=== PATIENT | male | born 1945 | race Two or more races ===

== ENCOUNTER → 2018-01-09 | Outpatient (CLI) | payer MEDICARE, MEDICAID | END | disposition home or self-care (01) | LOC: RADPV 10:25 | PROVIDERS: ATTEND Internal Medicine Cardiovascular Disease | DX: I70.0 Atherosclerosis of aorta (principal); J18.9 Pneumonia, unspecified organism | CPT/HCPCS: 71046 ==

== ENCOUNTER → 2018-02-05 | Outpatient (CLI) | payer MEDICARE, MEDICAID | END | disposition home or self-care (01) | LOC: RADPV 11:04 | PROVIDERS: ATTEND Internal Medicine Cardiovascular Disease | DX: I70.0 Atherosclerosis of aorta (principal); R91.8 Other nonspecific abnormal finding of lung field | CPT/HCPCS: 71046 ==

== ENCOUNTER 2022-03-21 16:08 | Emergency (ER) | payer MEDICARE, MEDICAID ==
[~2022-03-21] VITALS: Ht 160 cm; Wt 75.0 kg
[2022-03-21] MEDS ORDERED: METF-1211 PO (16:36)
[2022-03-21] MEDS ORDERED: AMLO-258 PO (16:36)
[2022-03-21] MEDS ORDERED: HYDR25TA PO (16:36)
[2022-03-21] MEDS ORDERED: VERA120T21 PO (16:36)
[2022-03-21] MEDS ORDERED: IRBE150T51 PO (16:36)
[2022-03-21] MEDS ORDERED: EMPA10TA PO (16:36)
[2022-03-21] MEDS ORDERED: AMIO200T68 PO (16:36)
[2022-03-21] MEDS ORDERED: GLIP5TAB12 PO (16:36)
[2022-03-21] MEDS ORDERED: LEVO88TA4 PO (16:36)
[2022-03-21] MEDS ORDERED: SILD25 PO (16:36)
[2022-03-21 18:36] VITALS: BP 148/79
== END 2022-03-21 20:00 | disposition home or self-care (01) ==
LOC: EMS 16:08
DX: I10 Essential (primary) hypertension (principal); E11.9 Type 2 diabetes mellitus without complications; F17.210 Nicotine dependence, cigarettes, uncomplicated; Z79.899 Other long term (current) drug therapy
CPT/HCPCS: 99281; Z7502

== ENCOUNTER 2025-06-14 14:37 | Inpatient (IN) | payer MEDICARE, MEDICAID ==
[~2025-06-14] VITALS: Ht 167.6 cm; Wt 67.3 kg
[~2025-06-14 14:37] MED LIST: AMIO200T73 PO; AMLO-258 PO; EMPA10TA3 PO; GLIP5TAB16 PO; HYDR25TA PO; IRBE150T51 PO; LEVO88TA4 PO; METF-1211 PO; SILD25 PO; VERA120T21 PO
[2025-06-14 15:10] LABS: PLATELET COUNT (AUTO) 183 K/uL (150-450); RED BLOOD CELL COUNT(AUTO) 4.12 MIL/uL (4.50-5.90); RED CELL DISTRIBUTION WIDTH 21.7 % (11.5-14.5); WHITE BLOOD COUNT (AUTO) 5.0 K/uL (4.5-11.0)
[2025-06-14 15:33] LABS: RBC MORPHOLOGY COMMENT ABNORMAL RBC MORPH
[2025-06-14 15:48] LABS: CALCIUM, TOTAL 8.8 mg/dL (8.8-10.5); CREATININE 1.93 mg/dL (0.60-1.30); GLOMERULAR FILTR. RATE CALC 34.0 mL/min (>60); GLUCOSE,RANDOM 122.0 mg/dL (70-110); SODIUM SERUM 137.0 mmol/L (136-145); UREA NITROGEN, BLOOD 46.0 mg/dL (7-18)
[2025-06-14] MEDS: FUROSEMIDE 20 MG/2 ML VIAL IVP ONE (17:54)
[2025-06-14] MEDS: ACETAMINOPHEN 325 MG TABLET PO PRN (17:54)
[2025-06-14 17:55] LABS: TROPONIN I-HIGH SENSITIVITY 79 ng/L (<76)
[2025-06-14 18:09] LABS: ASPARTATE AMINOTRANSFERASE 27 U/L (15-37); TOTAL PROTEIN, SERUM 7.1 g/dL (6.4-8.2)
[2025-06-14 18:28] LABS: LACTIC ACID 0.3 mmol/L (0.4-2.0)
[2025-06-14] MEDS: ASPIRIN 325 MG TABLET PO ONE (18:40)
[2025-06-14 18:58] LABS: TROPONIN I-HIGH SENSITIVITY 82 ng/L (<76)
[2025-06-14 20:23] LABS: APPEARANCE,URINE CLEAR (CLEAR); GLUCOSE, URINE (UA) NEGATIVE (NEGATIVE); LEUKOCYTE ESTERASE ,URINE NEGATIVE (NEGATIVE); NITRATE,URINE NEGATIVE (NEGATIVE); OCCULT BLOOD,URINE NEGATIVE (NEGATIVE); SPECIFIC GRAVITIY, URINE 1.012 (1.003-1.030)
[2025-06-14 20:30] LABS: SULFOSALICYLIC ACID,URINE 2+ (Negative)
[2025-06-14 20:31] LABS: SQUAMOUS EPITHELIAL CELL,UR Rare /LPF (None Seen)
[2025-06-14] MEDS ORDERED: FUROSEMIDE 20 MG/2 ML VIAL IVP SCH (21:00)
[2025-06-14] MEDS: DOCUSATE SODIUM 100 MG CAPSULE PO SCH (21:02)
[2025-06-14 21:05] LABS: GLUCOMETER DEV NAME(LOC) ERT.7; GLUCOSE,POINT OF CARE 112 MG/DL (70-110)
[2025-06-14 22:59] VITALS: BP 185/99; PULSE 57; RESP 19; TEMP 97.8; O2SAT 95
[2025-06-14 23:12] LABS: TROPONIN I-HIGH SENSITIVITY 82 ng/L (<76)
[2025-06-14] MEDS ORDERED: NICOTINE 14 MG/24 HOUR PATCH TD PRN (23:30)
[2025-06-14] MEDS: HEPARIN SODIUM,PORCINE 5,000 UNITS/ML VIAL SQ SCH (23:49)
[2025-06-14] MEDS: NITROGLYCERIN 2% (1 GM=INCH) OINTMENT PACKET TP PRN (23:49)
[2025-06-15] VITALS (8 sets, daily range): BP systolic 142–201; BP diastolic 80–91; PULSE 44–62; RESP 16–18; TEMP 97.3–97.7; O2SAT 96–98
[2025-06-15] MEDS ORDERED: FURO-151 PO (00:26)
[2025-06-15] MEDS ORDERED: ASPI-1444 PO (00:27)
[2025-06-15] MEDS ORDERED: HYDR25TA84 PO (00:28)
[2025-06-15] MEDS ORDERED: ISOS10TA16 PO (00:29)
[2025-06-15] MEDS ORDERED: METO25TA3 PO (00:35)
[2025-06-15] MEDS ORDERED: LEVO125T95 PO (00:36)
[2025-06-15] MEDS ORDERED: LEVO88TA7 PO (00:42)
[2025-06-15] MEDS ORDERED: ATOR20TA PO (00:42)
[2025-06-15 02:47] LABS: TROPONIN I-HIGH SENSITIVITY 73 ng/L (<76)
[2025-06-15 06:22] LABS: PLATELET COUNT (AUTO) 181 K/uL (150-450); RED BLOOD CELL COUNT(AUTO) 4.13 MIL/uL (4.50-5.90); RED CELL DISTRIBUTION WIDTH 22.1 % (11.5-14.5); WHITE BLOOD COUNT (AUTO) 4.0 K/uL (4.5-11.0)
[2025-06-15 06:30] LABS: RBC MORPHOLOGY COMMENT ABNORMAL RBC MORPH
[2025-06-15 06:35] LABS: CALCIUM, TOTAL 8.3 mg/dL (8.8-10.5); CREATININE 2.18 mg/dL (0.60-1.30); GLOMERULAR FILTR. RATE CALC 29.0 mL/min (>60); GLUCOSE,RANDOM 169.0 mg/dL (70-110); SODIUM SERUM 136.0 mmol/L (136-145); UREA NITROGEN, BLOOD 46.0 mg/dL (7-18)
[2025-06-15] MEDS: ASPIRIN 81 MG DR TABLET PO SCH (08:51)
[2025-06-15] MEDS: ISOSORBIDE DINITRATE 20 MG TABLET PO SCH (08:51)
[2025-06-15] MEDS: ATORVASTATIN CALCIUM 40 MG TABLET PO SCH (08:51)
[2025-06-15 15:46] LABS: PH,URINE DRUG SCREEN 6.0 (5.0-8.0)
[2025-06-15 15:51] LABS: ALCOHOL, URINE DRUG SCREEN NEGATIVE (NEGATIVE); AMPHET/METH SCREEN,URINE NEGATIVE (NEGATIVE); BARBITURATE SCREEN, URINE NEGATIVE (NEGATIVE); CANNABINOID SCREEN,URINE NEGATIVE (NEGATIVE); COCAINE SCREEN,URINE NEGATIVE (NEGATIVE); METHADONE SCREEN, URINE NEGATIVE (NEGATIVE)
[2025-06-16] VITALS (7 sets, daily range): BP systolic 149–190; BP diastolic 64–91; PULSE 55–73; RESP 19–20; TEMP 97.5–98.6; O2SAT 96–99
[2025-06-16 07:06] LABS: CALCIUM, TOTAL 8.8 mg/dL (8.8-10.5); CREATININE 2.11 mg/dL (0.60-1.30); GLOMERULAR FILTR. RATE CALC 31.0 mL/min (>60); GLUCOSE,RANDOM 105.0 mg/dL (70-110); SODIUM SERUM 135.0 mmol/L (136-145); UREA NITROGEN, BLOOD 48.0 mg/dL (7-18)
[2025-06-16] MEDS ORDERED: SODIUM CHLORIDE 0.9% 500 ML IV ONE (12:38)
[2025-06-16] MEDS: CefTRIAXone 1 GM/DEXTROSE 50 ML IV SCH (12:43)
[2025-06-16] MEDS: DiphenhydrAMINE/ZINC ACET 30 GM CREAM TP PRN (15:12)
[2025-06-16] MEDS: ISOSORBIDE DINITRATE 20 MG TABLET PO SCH (15:13)
[2025-06-17 00:37] VITALS: BP 177/81; PULSE 66; RESP 18; TEMP 98.1; O2SAT 97
[2025-06-17 04:14] VITALS: BP 166/65; PULSE 72; RESP 17; TEMP 98.2; O2SAT 96
[2025-06-17 06:54] LABS: CALCIUM, TOTAL 8.8 mg/dL (8.8-10.5); CREATININE 2.17 mg/dL (0.60-1.30); GLOMERULAR FILTR. RATE CALC 30.0 mL/min (>60); GLUCOSE,RANDOM 129.0 mg/dL (70-110); SODIUM SERUM 134.0 mmol/L (136-145); UREA NITROGEN, BLOOD 49.0 mg/dL (7-18)
[2025-06-17 06:58] LABS: PLATELET COUNT (AUTO) 178 K/uL (150-450); RED BLOOD CELL COUNT(AUTO) 3.63 MIL/uL (4.50-5.90); RED CELL DISTRIBUTION WIDTH 22.0 % (11.5-14.5); WHITE BLOOD COUNT (AUTO) 3.9 K/uL (4.5-11.0)
[2025-06-17 07:11] VITALS: BP 172/77; PULSE 66; RESP 18; TEMP 98.2; O2SAT 98
[2025-06-17] MEDS: CLOPIDOGREL BISULFATE 75 MG TABLET PO SCH (08:27)
[2025-06-17 11:45] VITALS: BP 129/67; PULSE 50; RESP 19; TEMP 97.5; O2SAT 98
[2025-06-17 16:04] VITALS: BP 176/81; PULSE 59; RESP 19; TEMP 98; O2SAT 96
[2025-06-17] MEDS: PIPERACILLIN/TAZO 3.375 GM/D5W 50 ML IV ONE (18:18)
[2025-06-17] MEDS: ASPIRIN/DIPYRIDAMOLE ER 25/200 MG ER CAPSULE PO ONE (18:22)
[2025-06-17 20:06] VITALS: BP 144/54; PULSE 55; RESP 18; TEMP 97.6; O2SAT 97
[2025-06-17] MEDS: ONDANSETRON HCL 4 MG/2 ML VIAL IVP PRN (21:48)
[2025-06-18] VITALS (7 sets, daily range): BP systolic 117–158; BP diastolic 67–86; PULSE 54–84; RESP 17–18; TEMP 97.3–98.4; O2SAT 97–100
[2025-06-18] MEDS: PIPERACILLIN SODIUM/TAZOBACTAM 2.25 GM in DEXTROSE 5%-WATER 50 ML IV SCH (00:52)
[2025-06-18 06:45] LABS: PLATELET COUNT (AUTO) 169 K/uL (150-450); RED BLOOD CELL COUNT(AUTO) 3.49 MIL/uL (4.50-5.90); RED CELL DISTRIBUTION WIDTH 21.9 % (11.5-14.5); WHITE BLOOD COUNT (AUTO) 4.3 K/uL (4.5-11.0)
[2025-06-18 07:43] LABS: CALCIUM, TOTAL 8.5 mg/dL (8.8-10.5); CREATININE 2.19 mg/dL (0.60-1.30); GLOMERULAR FILTR. RATE CALC 29.0 mL/min (>60); GLUCOSE,RANDOM 150.0 mg/dL (70-110); SODIUM SERUM 137.0 mmol/L (136-145); UREA NITROGEN, BLOOD 45.0 mg/dL (7-18)
[2025-06-18 09:14] LABS: RBC MORPHOLOGY COMMENT ABNORMAL RBC MORPH
[2025-06-18] MEDS ORDERED: HYDROCODONE/ACETAMINOPHEN 5-325 MG TABLET PO PRN (13:15)
[2025-06-18] MEDS ORDERED: MORPHINE SULFATE 4 MG/ML SYRINGE IVP PRN (13:15)
[2025-06-18] MEDS ORDERED: ALBUTEROL SULFATE 2.5 MG/0.5 ML NEB SOLUTION NEB PRN (13:15)
[2025-06-18] MEDS ORDERED: IPRATROPIUM BROMIDE 0.5 MG/2.5 ML NEB SOLUTION NEB PRN (13:15)
[2025-06-18] MEDS ORDERED: ZOLPIDEM TARTRATE 5 MG TABLET PO PRN (13:15)
[2025-06-18] MEDS ORDERED: BISACODYL 10 MG RECTAL RECTAL SUPPOSITORY PR PRN (13:15)
[2025-06-18] MEDS ORDERED: MAGNESIUM HYDROXIDE SUSPENSION 30 ML UDCUP PO PRN (13:15)
[2025-06-18] MEDS ORDERED: ONDANSETRON HCL 4 MG/2 ML VIAL IVP PRN (13:15)
[2025-06-18] MEDS: DOCUSATE SODIUM 100 MG CAPSULE PO SCH (20:45)
[2025-06-19 04:21] VITALS: BP 158/81; PULSE 59; RESP 18; TEMP 97.5; O2SAT 98
[2025-06-19 06:53] LABS: PLATELET COUNT (AUTO) 193 K/uL (150-450); RED BLOOD CELL COUNT(AUTO) 3.75 MIL/uL (4.50-5.90); RED CELL DISTRIBUTION WIDTH 21.9 % (11.5-14.5); WHITE BLOOD COUNT (AUTO) 4.2 K/uL (4.5-11.0)
[2025-06-19 08:17] VITALS: BP 167/70; PULSE 55; RESP 18; TEMP 98.4; O2SAT 98
[2025-06-19] MEDS: PANTOPRAZOLE SODIUM 40 MG DR TABLET PO SCH (08:20)
[2025-06-19 09:12] LABS: RBC MORPHOLOGY COMMENT ABNORMAL RBC MORPH
[2025-06-19 11:02] VITALS: BP 143/52; PULSE 54; RESP 16; TEMP 98.2; O2SAT 99
[2025-06-19] MEDS ORDERED: AMOX-457 PO (11:55)
[2025-06-19] MEDS ORDERED: ATOR40TA71 PO (11:55)
[2025-06-19] MEDS ORDERED: CLOP75TA83 PO (11:55)
[2025-06-19] MEDS ORDERED: AMLO-257 PO (11:55)
[2025-06-19] MEDS ORDERED: ISOS20 PO (11:55)
[2025-06-19] MEDS ORDERED: HYDR50TA37 PO (11:55)
[2025-06-19 12:43] LABS: CALCIUM, TOTAL 8.6 mg/dL (8.8-10.5); CREATININE 2.65 mg/dL (0.60-1.30); GLOMERULAR FILTR. RATE CALC 23.0 mL/min (>60); GLUCOSE,RANDOM 176.0 mg/dL (70-110); SODIUM SERUM 134.0 mmol/L (136-145); UREA NITROGEN, BLOOD 44.0 mg/dL (7-18)
[2025-06-19 15:00] VITALS: BP 150/84; RESP 18; O2SAT 100
== END 2025-06-19 16:50 | disposition home or self-care (01) | DRG 291 ==
LOC: EMS 14:37 → CANBEDREQ 17:07 → EDH 17:33 → 5S 22:32
PROVIDERS: ADMIT Internal Medicine; ATTEND Internal Medicine
DX: I11.0 Hypertensive heart disease with heart failure (principal); I50.23 Acute on chronic systolic (congestive) heart failure; N17.9 Acute kidney failure, unspecified; L03.116 Cellulitis of left lower limb; L03.115 Cellulitis of right lower limb; E11.51 Type 2 diabetes mellitus with diabetic peripheral angiopathy without gangrene; N18.9 Chronic kidney disease, unspecified; R79.89 Other specified abnormal findings of blood chemistry; I13.0 Hypertensive heart and chronic kidney disease with heart failure and stage 1 through stage 4 chronic kidney disease, or unspecified chronic kidney disease; E03.9 Hypothyroidism, unspecified; E11.22 Type 2 diabetes mellitus with diabetic chronic kidney disease; R00.1 Bradycardia, unspecified; E78.00 Pure hypercholesterolemia, unspecified; F17.210 Nicotine dependence, cigarettes, uncomplicated; S80.811A Abrasion, right lower leg, initial encounter; S80.862A Insect bite (nonvenomous), left lower leg, initial encounter; S80.861A Insect bite (nonvenomous), right lower leg, initial encounter; X58.XXXA Exposure to other specified factors, initial encounter; Y93.89 Activity, other specified; Y92.89 Other specified places as the place of occurrence of the external cause; Y99.8 Other external cause status; Z79.899 Other long term (current) drug therapy; Z79.82 Long term (current) use of aspirin
CPT/HCPCS: 71045; 73721; 76770; 80048; 80076; 80307; 81001; 81002; 82962; 83605; 83690; 83735; 83880; 84443; 84484; 85025; 93005; 93306; 93925; 93970; 96374; 97110; 97116; 97161; 97166; 97535; 99285; J0360; J0696; J1171; J1644; J1938; J2405; J2543; J7040; J7060; 36415-L1; 36415-TC

== ENCOUNTER 2025-07-10 16:13 | Inpatient (IN) | payer MEDICARE, MEDICAID ==
[~2025-07-10] VITALS: Ht 165.1 cm; Wt 65.8 kg
[~2025-07-10 16:13] MED LIST changes: -AMIO200T73 PO; +AMLO-257 PO; -AMLO-258 PO; +AMOX-457 PO; +ASPI-1444 PO; +ATOR40TA71 PO; +CLOP75TA83 PO; -GLIP5TAB16 PO; -HYDR25TA PO; +HYDR50TA37 PO; -IRBE150T51 PO; +ISOS20 PO; -LEVO88TA4 PO; +LEVO88TA7 PO; -METF-1211 PO; +METO25TA3 PO; -SILD25 PO; -VERA120T21 PO
[2025-07-10] MEDS ORDERED: GABA-1216 PO (16:35)
[2025-07-10 17:09] LABS: CALCIUM, TOTAL 8.1 mg/dL (8.8-10.5); CREATININE 2.57 mg/dL (0.60-1.30); GLOMERULAR FILTR. RATE CALC 24 mL/min (>60); GLUCOSE,RANDOM 118 mg/dL (70-110); SODIUM SERUM 136 mmol/L (136-145); UREA NITROGEN, BLOOD 52 mg/dL (7-18)
[2025-07-10 17:12] LABS: PLATELET COUNT (AUTO) 203 K/uL (150-450); RED BLOOD CELL COUNT(AUTO) 3.11 MIL/uL (4.50-5.90); RED CELL DISTRIBUTION WIDTH 20.3 % (11.5-14.5); WHITE BLOOD COUNT (AUTO) 7.4 K/uL (4.5-11.0)
[2025-07-10] MEDS: ASPIRIN 81 MG CHEWABLE TABLET PO ONE (17:16)
[2025-07-10] MEDS: FUROSEMIDE 40 MG/4 ML VIAL IVP ONE (17:16)
[2025-07-10 17:17] LABS: TROPONIN I-HIGH SENSITIVITY 30 ng/L (<76)
[2025-07-10 17:48] LABS: RBC MORPHOLOGY COMMENT ABNORMAL R
[2025-07-10 17:52] LABS: BAND NEUTROPHILS % (MANUAL) 0 % (0-5); EOSINOPHILS % (MANUAL) 9 % (1-6); LYMPHOCYTES % (MANUAL) 3 % (22-44); MONOCYTES % (MANUAL) 4 % (2-9); SEGMENTED NEUTROPHILS % 84 % (40-70)
[2025-07-10] MEDS ORDERED: ACETAMINOPHEN 325 MG TABLET PO PRN (18:15)
[2025-07-10] MEDS ORDERED: ONDANSETRON HCL 4 MG/2 ML VIAL IVP PRN (18:15)
[2025-07-10 18:47] LABS: APPEARANCE,URINE CLEAR (CLEAR); GLUCOSE, URINE (UA) NEGATIVE (NEGATIVE); LEUKOCYTE ESTERASE ,URINE SMALL (NEGATIVE); NITRATE,URINE NEGATIVE (NEGATIVE); OCCULT BLOOD,URINE NEGATIVE (NEGATIVE); SPECIFIC GRAVITIY, URINE 1.013 (1.003-1.030)
[2025-07-10 18:49] LABS: PH,URINE DRUG SCREEN 5.5 (5.0-8.0)
[2025-07-10 18:52] LABS: ALCOHOL, URINE DRUG SCREEN NEGATIVE (NEGATIVE); AMPHET/METH SCREEN,URINE NEGATIVE (NEGATIVE); BARBITURATE SCREEN, URINE NEGATIVE (NEGATIVE); CANNABINOID SCREEN,URINE NEGATIVE (NEGATIVE); COCAINE SCREEN,URINE NEGATIVE (NEGATIVE); METHADONE SCREEN, URINE NEGATIVE (NEGATIVE)
[2025-07-10] MEDS: CefTRIAXone 1 GM/DEXTROSE 50 ML IV SCH (18:53)
[2025-07-10] MEDS: DOXYCYCLINE HYCLATE 100 MG in DEXTROSE 5%-WATER 100 ML IV SCH (19:34)
[2025-07-10] MEDS: FUROSEMIDE 20 MG/2 ML VIAL IVP SCH (19:40)
[2025-07-10] MEDS: DOCUSATE SODIUM 100 MG CAPSULE PO SCH (19:40)
[2025-07-10 19:41] LABS: SQUAMOUS EPITHELIAL CELL,UR Rare /LPF (None Seen)
[2025-07-10] MEDS: GABAPENTIN 100 MG CAPSULE PO SCH (19:41)
[2025-07-10] MEDS ORDERED: PIPERACILLIN/TAZO 3.375 GM/D5W 50 ML IV SCH (22:00)
[2025-07-10 22:03] VITALS: BP 159/65; PULSE 54; RESP 20; TEMP 97.5; O2SAT 99
[2025-07-10 22:35] VITALS: PULSE 52; RESP 20; O2SAT 99
[2025-07-10] MEDS: ALBUTEROL SULFATE 2.5 MG/0.5 ML NEB SOLUTION NEB PRN (22:35)
[2025-07-10] MEDS: IPRATROPIUM BROMIDE 0.5 MG/2.5 ML NEB SOLUTION NEB PRN (22:35)
[2025-07-10 22:50] VITALS: PULSE 53; RESP 20; O2SAT 99
[2025-07-11] VITALS: BP 152/56; PULSE 52; RESP 22; TEMP 97.7; O2SAT 97
[2025-07-11] MEDS ORDERED: SODIUM CHLORIDE 0.9% 500 ML IV ONE
[2025-07-11] MEDS: HEPARIN SODIUM,PORCINE 5,000 UNITS/ML VIAL SQ SCH (00:05)
[2025-07-11] MEDS: PIPERACILLIN SODIUM/TAZOBACTAM 2.25 GM in DEXTROSE 5%-WATER 50 ML IV SCH ×2 (00:05→21:10)
[2025-07-11 05:32] VITALS: BP 142/77; PULSE 56; RESP 26; TEMP 98.1; O2SAT 96
[2025-07-11] MEDS: LEVOTHYROXINE SODIUM 88 MCG TABLET PO SCH (05:50)
[2025-07-11 06:04] LABS: PLATELET COUNT (AUTO) 183 K/uL (150-450); RED BLOOD CELL COUNT(AUTO) 3.04 MIL/uL (4.50-5.90); RED CELL DISTRIBUTION WIDTH 20.1 % (11.5-14.5); WHITE BLOOD COUNT (AUTO) 6.9 K/uL (4.5-11.0)
[2025-07-11 06:28] LABS: CALCIUM, TOTAL 8.3 mg/dL (8.8-10.5); CREATININE 2.55 mg/dL (0.60-1.30); GLOMERULAR FILTR. RATE CALC 25.0 mL/min (>60); GLUCOSE,RANDOM 187.0 mg/dL (70-110); SODIUM SERUM 137.0 mmol/L (136-145); UREA NITROGEN, BLOOD 52.0 mg/dL (7-18)
[2025-07-11 07:00] LABS: RBC MORPHOLOGY COMMENT ABNORMAL RBC MORPH
[2025-07-11] MEDS: EMPAGLIFLOZIN 10 MG TABLET PO SCH (08:49)
[2025-07-11] MEDS: ATORVASTATIN CALCIUM 40 MG TABLET PO SCH (08:50)
[2025-07-11] MEDS: ASPIRIN 81 MG DR TABLET PO SCH (08:50)
[2025-07-11] MEDS: CLOPIDOGREL BISULFATE 75 MG TABLET PO SCH (08:50)
[2025-07-11] MEDS: METOPROLOL SUCCINATE 25 MG ER TABLET PO SCH (08:50)
[2025-07-11 08:53] VITALS: BP_SYST 135; BP_SYST 149; BP_DIAS 59; BP_DIAS 93; PULSE 53; RESP 18; RESP 20; TEMP 98.1; O2SAT 93; O2SAT 96
[2025-07-11] MEDS: FUROSEMIDE 20 MG/2 ML VIAL IVP SCH (11:56)
[2025-07-11] MEDS ORDERED: DEXTROSE 50%-WATER 25 GM/50 ML SYRINGE IVP PRN (13:00)
[2025-07-11 13:49] VITALS: BP 145/81; PULSE 50; RESP 19; TEMP 97.5; O2SAT 99
[2025-07-11 16:51] VITALS: BP 139/72; PULSE 47; RESP 18; TEMP 97.3; O2SAT 96
[2025-07-11 20:18] VITALS: BP 154/77; PULSE 45; RESP 18; TEMP 97.3; O2SAT 100
[2025-07-11] MEDS ORDERED: ATROPINE SULFATE 0.1 MG/ML 10 ML SYRINGE IVP PRN (20:30)
[2025-07-11] MEDS: INSULIN LISPRO 100 UNITS/ML SQ PRN (21:16)
[2025-07-11 21:55] LABS: GLUCOMETER DEV NAME(LOC) 5N.2C; GLUCOSE,POINT OF CARE 347 MG/DL (70-110)
[2025-07-12] VITALS (9 sets, daily range): BP systolic 120–155; BP diastolic 69–79; PULSE 44–87; RESP 18–20; TEMP 97–97.7; O2SAT 95–100
[2025-07-12 06:49] LABS: PLATELET COUNT (AUTO) 170 K/uL (150-450); RED BLOOD CELL COUNT(AUTO) 2.94 MIL/uL (4.50-5.90); RED CELL DISTRIBUTION WIDTH 20.6 % (11.5-14.5); WHITE BLOOD COUNT (AUTO) 7.7 K/uL (4.5-11.0)
[2025-07-12 07:25] LABS: CALCIUM, TOTAL 8.1 mg/dL (8.8-10.5); CREATININE 2.98 mg/dL (0.60-1.30); GLOMERULAR FILTR. RATE CALC 20.0 mL/min (>60); GLUCOSE,RANDOM 195.0 mg/dL (70-110); SODIUM SERUM 135.0 mmol/L (136-145); UREA NITROGEN, BLOOD 66.0 mg/dL (7-18)
[2025-07-12 08:32] LABS: PLATELET COUNT (AUTO) 190 K/uL (150-450); RED BLOOD CELL COUNT(AUTO) 2.98 MIL/uL (4.50-5.90); RED CELL DISTRIBUTION WIDTH 20.5 % (11.5-14.5); WHITE BLOOD COUNT (AUTO) 8.3 K/uL (4.5-11.0)
[2025-07-12 08:48] LABS: RBC MORPHOLOGY COMMENT ABNORMAL RBC MORPH
[2025-07-12] MEDS: ALBUTEROL SULFATE 2.5 MG/0.5 ML NEB SOLUTION NEB ONE (09:45)
[2025-07-12 09:49] LABS: RBC MORPHOLOGY COMMENT ABNORMAL RBC MORPH
[2025-07-12] MEDS: DEXTROSE 50%-WATER 25 GM/50 ML SYRINGE IVP ONE (10:18)
[2025-07-12] MEDS: CALCIUM GLUCONATE 100 MG/ML 10 ML IVP ONE (10:19)
[2025-07-12] MEDS: INSULIN REGULAR, HUMAN 100 UNITS/ML IVP ONE (10:22)
[2025-07-12 12:16] LABS: GLUCOMETER DEV NAME(LOC) 5N.2C; GLUCOSE,POINT OF CARE 196 MG/DL (70-110)
[2025-07-12 18:56] LABS: GLUCOMETER DEV NAME(LOC) 5S.1E; GLUCOSE,POINT OF CARE 156 MG/DL (70-110)
[2025-07-13] VITALS (14 sets, daily range): BP systolic 118–176; BP diastolic 57–86; PULSE 47–63; RESP 18–20; TEMP 97.2–98.1; O2SAT 90–96
[2025-07-13 03:51] LABS: GLUCOMETER DEV NAME(LOC) 5S.1E; GLUCOSE,POINT OF CARE 303 MG/DL (70-110)
[2025-07-13 05:58] LABS: PLATELET COUNT (AUTO) 187 K/uL (150-450); RED BLOOD CELL COUNT(AUTO) 2.88 MIL/uL (4.50-5.90); RED CELL DISTRIBUTION WIDTH 20.7 % (11.5-14.5); WHITE BLOOD COUNT (AUTO) 9.1 K/uL (4.5-11.0)
[2025-07-13 06:10] LABS: CALCIUM, TOTAL 8.1 mg/dL (8.8-10.5); CREATININE 3.31 mg/dL (0.60-1.30); GLOMERULAR FILTR. RATE CALC 18.0 mL/min (>60); GLUCOSE,RANDOM 299.0 mg/dL (70-110); SODIUM SERUM 136.0 mmol/L (136-145); UREA NITROGEN, BLOOD 74.0 mg/dL (7-18)
[2025-07-13 06:48] LABS: RBC MORPHOLOGY COMMENT ABNORMAL RBC MORPH
[2025-07-13 08:31] LABS: GLUCOMETER DEV NAME(LOC) 5N.2C; GLUCOSE,POINT OF CARE 276 MG/DL (70-110)
[2025-07-13 09:24] LABS: PLATELET COUNT (AUTO) 175 K/uL (150-450); RED BLOOD CELL COUNT(AUTO) 2.83 MIL/uL (4.50-5.90); RED CELL DISTRIBUTION WIDTH 20.7 % (11.5-14.5); WHITE BLOOD COUNT (AUTO) 8.3 K/uL (4.5-11.0)
[2025-07-13 10:21] LABS: RBC MORPHOLOGY COMMENT ABNORMAL RBC MORPH
[2025-07-13 12:00] LABS: GLUCOMETER DEV NAME(LOC) 5N.2C; GLUCOSE,POINT OF CARE 379 MG/DL (70-110)
[2025-07-13] MEDS ORDERED: SODIUM CHLORIDE 0.9% 1,000 ML ONE (14:25)
[2025-07-13] MEDS: PANTOPRAZOLE SODIUM 40 MG/VIAL IVP SCH (17:20)
[2025-07-13] MEDS: INSULIN GLARGINE,HUM.REC.ANLOG 100 UNITS/ML SQ ONE (17:27)
[2025-07-13 20:18] LABS: PLATELET COUNT (AUTO) 196 K/uL (150-450); RED BLOOD CELL COUNT(AUTO) 3.56 MIL/uL (4.50-5.90); RED CELL DISTRIBUTION WIDTH 21.1 % (11.5-14.5); WHITE BLOOD COUNT (AUTO) 7.6 K/uL (4.5-11.0)
[2025-07-13 20:38] LABS: RBC MORPHOLOGY COMMENT ABNORMAL RBC MORPH
[2025-07-13 21:25] LABS: GLUCOMETER DEV NAME(LOC) 5N.2C; GLUCOSE,POINT OF CARE 220 MG/DL (70-110)
[2025-07-13] MEDS: COLLAGENASE 250 UNITS/GM 30 GM OINTMENT TP SCH (21:48)
[2025-07-14] VITALS (7 sets, daily range): BP systolic 153–163; BP diastolic 71–82; PULSE 48–57; RESP 18–19; TEMP 97.3–98; O2SAT 94–99
[2025-07-14] MEDS: ISOSORBIDE MONONITRATE 30 MG ER TABLET PO SCH (08:11)
[2025-07-14] MEDS: INSULIN GLARGINE,HUM.REC.ANLOG 100 UNITS/ML SQ SCH (08:12)
[2025-07-14 11:15] LABS: GLUCOMETER DEV NAME(LOC) 5S.1E; GLUCOSE,POINT OF CARE 129 MG/DL (70-110)
[2025-07-14 11:15] LABS: GLUCOMETER DEV NAME(LOC) 5S.1E; GLUCOSE,POINT OF CARE 362 MG/DL (70-110)
[2025-07-14 11:51] LABS: GLUCOMETER DEV NAME(LOC) 5N.2C; GLUCOSE,POINT OF CARE 88 MG/DL (70-110)
[2025-07-14 16:09] LABS: CALCIUM, TOTAL 8.1 mg/dL (8.8-10.5); CREATININE 3.32 mg/dL (0.60-1.30); GLOMERULAR FILTR. RATE CALC 18.0 mL/min (>60); GLUCOSE,RANDOM 327.0 mg/dL (70-110); SODIUM SERUM 135.0 mmol/L (136-145); UREA NITROGEN, BLOOD 76.0 mg/dL (7-18)
[2025-07-14 17:00] LABS: GLUCOMETER DEV NAME(LOC) 5N.2C; GLUCOSE,POINT OF CARE 80 MG/DL (70-110)
[2025-07-14] MEDS: ALBUTEROL SULFATE 2.5 MG/0.5 ML NEB SOLUTION NEB SCH (19:17)
[2025-07-14] MEDS: IPRATROPIUM BROMIDE 0.5 MG/2.5 ML NEB SOLUTION NEB SCH (19:17)
[2025-07-14] MEDS: INSULIN LISPRO 100 UNITS/ML SQ ONE ×2 (21:20→21:26)
[2025-07-14] MEDS: DEXTROSE 50%-WATER 25 GM/50 ML SYRINGE IVP ONE (21:28)
[2025-07-14] MEDS: INSULIN REGULAR, HUMAN 100 UNITS/ML IVP ONE (21:30)
[2025-07-14] MEDS: CALCIUM GLUCONATE 1,000 MG in DEXTROSE 5%-WATER 50 ML IV ONE (22:21)
[2025-07-14] MEDS: SODIUM ZIRCONIUM CYCLOSILICATE 5 GM POWDER PACKET PO ONE (23:06)
[2025-07-14 23:46] LABS: GLUCOMETER DEV NAME(LOC) 5S.1E; GLUCOSE,POINT OF CARE 415 MG/DL (70-110)
[2025-07-14 23:46] LABS: GLUCOMETER DEV NAME(LOC) 5S.1E; GLUCOSE,POINT OF CARE 399 MG/DL (70-110)
[2025-07-14 23:46] LABS: GLUCOMETER DEV NAME(LOC) 5S.1E; GLUCOSE,POINT OF CARE 400 MG/DL (70-110)
[2025-07-15] VITALS (11 sets, daily range): BP systolic 125–181; BP diastolic 58–82; PULSE 50–63; RESP 17–22; TEMP 97.3–98.1; O2SAT 91–100
[2025-07-15] MEDS: INSULIN LISPRO 100 UNITS/ML SQ ONE (00:35)
[2025-07-15] MEDS: EMPAGLIFLOZIN 25 MG TABLET PO ONE (00:41)
[2025-07-15 06:22] LABS: PLATELET COUNT (AUTO) 189 K/uL (150-450); RED BLOOD CELL COUNT(AUTO) 3.40 MIL/uL (4.50-5.90); RED CELL DISTRIBUTION WIDTH 20.7 % (11.5-14.5); WHITE BLOOD COUNT (AUTO) 7.5 K/uL (4.5-11.0)
[2025-07-15 06:51] LABS: PHOSPHORUS 4.4 mg/dL (2.5-4.9)
[2025-07-15 07:09] LABS: CALCIUM, TOTAL 8.2 mg/dL (8.8-10.5); CREATININE 3.18 mg/dL (0.60-1.30); GLOMERULAR FILTR. RATE CALC 19.0 mL/min (>60); GLUCOSE,RANDOM 111.0 mg/dL (70-110); SODIUM SERUM 138.0 mmol/L (136-145); UREA NITROGEN, BLOOD 77.0 mg/dL (7-18)
[2025-07-15] MEDS: INSULIN LISPRO 100 UNITS/ML SQ SCH (07:30)
[2025-07-15 08:25] LABS: RBC MORPHOLOGY COMMENT ABNORMAL RBC MORPH
[2025-07-15 12:45] LABS: GLUCOMETER DEV NAME(LOC) 5S.1E; GLUCOSE,POINT OF CARE 180 MG/DL (70-110)
[2025-07-15 12:45] LABS: GLUCOMETER DEV NAME(LOC) 5S.1E; GLUCOSE,POINT OF CARE 104 MG/DL (70-110)
[2025-07-15 12:45] LABS: GLUCOMETER DEV NAME(LOC) 5S.1E; GLUCOSE,POINT OF CARE 98 MG/DL (70-110)
[2025-07-15 15:14] LABS: APPEARANCE,SPUN,BODY FLUID CLEAR (CLEAR); APPEARANCE,UNSPUN,BODY FLUID TURBID (CLEAR); COLOR,BODY FLUID YELLOW (LT YELLOW); SPECIMENTYPE,BODY FLUID THORAV
[2025-07-15 15:15] LABS: BODY FLUID RBC 44.0 /cu. mm.; TOTAL VOLUME,BODY FLUID 1100 mL; WBC, BODY FLUID 52 /cu. mm.
[2025-07-15 15:39] LABS: BASOPHILS,BODY FLUID 0 %; EOSINOPHILS,BF (ANAL) 0 %; LYMPHOCYTES,BODY FLUID 15 %; MONOCYTES,BODY FLUID 2 %; NEUTROPHILS,BODY FLUID 51 %
[2025-07-15 15:40] LABS: OTHER CELLS,BODY FLUID MESOTHELIALS
[2025-07-16] VITALS (9 sets, daily range): BP systolic 142–167; BP diastolic 61–72; PULSE 53–97; RESP 16–22; TEMP 97.2–98.2; O2SAT 94–98
[2025-07-16 06:20] LABS: PHOSPHORUS 3.9 mg/dL (2.5-4.9)
[2025-07-16 06:21] LABS: GLUCOMETER DEV NAME(LOC) 5S.1E; GLUCOSE,POINT OF CARE 258 MG/DL (70-110)
[2025-07-16 06:21] LABS: GLUCOMETER DEV NAME(LOC) 5S.1E; GLUCOSE,POINT OF CARE 340 MG/DL (70-110)
[2025-07-16 06:21] LABS: GLUCOMETER DEV NAME(LOC) 5S.1E; GLUCOSE,POINT OF CARE 178 MG/DL (70-110)
[2025-07-16 06:21] LABS: GLUCOMETER DEV NAME(LOC) 5S.1E; GLUCOSE,POINT OF CARE 296 MG/DL (70-110)
[2025-07-16 06:27] LABS: CALCIUM, TOTAL 8.3 mg/dL (8.8-10.5); CREATININE 3.24 mg/dL (0.60-1.30); GLOMERULAR FILTR. RATE CALC 19.0 mL/min (>60); GLUCOSE,RANDOM 166.0 mg/dL (70-110); SODIUM SERUM 138.0 mmol/L (136-145); UREA NITROGEN, BLOOD 77.0 mg/dL (7-18)
[2025-07-16] MEDS: SODIUM ZIRCONIUM CYCLOSILICATE 10 GM POWDER PACKET PO ONE (08:49)
[2025-07-16] MEDS ORDERED: EMPAGLIFLOZIN 25 MG TABLET PO SCH (09:00)
[2025-07-16 09:31] LABS: GLUCOMETER DEV NAME(LOC) 5S.1E; GLUCOSE,POINT OF CARE 118 MG/DL (70-110)
[2025-07-16] MEDS: *CLINICAL-LEVOFLOXACIN IVPB DOSING CLINICAL ONE (11:24)
[2025-07-16] MEDS: LEVOFLOXACIN 750 MG/D5% WATER 150 ML IV ONE (12:19)
[2025-07-16 12:45] LABS: GLUCOMETER DEV NAME(LOC) 5S.1E; GLUCOSE,POINT OF CARE 127 MG/DL (70-110)
[2025-07-16 17:56] LABS: GLUCOMETER DEV NAME(LOC) 5S.1E; GLUCOSE,POINT OF CARE 273 MG/DL (70-110)
[2025-07-16] MEDS: SODIUM POLYSTYRENE SULFONATE 15 GM/60 ML SUSPENSION BOTTLE PO ONE (19:11)
[2025-07-16 23:36] LABS: GLUCOMETER DEV NAME(LOC) 5S.1E; GLUCOSE,POINT OF CARE 240 MG/DL (70-110)
[2025-07-17] VITALS (11 sets, daily range): BP systolic 135–179; BP diastolic 65–93; PULSE 58–72; RESP 18–19; TEMP 97.5–98.7; O2SAT 95–99
[2025-07-17 06:10] LABS: PLATELET COUNT (AUTO) 156 K/uL (150-450); RED BLOOD CELL COUNT(AUTO) 3.20 MIL/uL (4.50-5.90); RED CELL DISTRIBUTION WIDTH 20.9 % (11.5-14.5); WHITE BLOOD COUNT (AUTO) 6.1 K/uL (4.5-11.0)
[2025-07-17 06:20] LABS: CALCIUM, TOTAL 8.1 mg/dL (8.8-10.5); CREATININE 2.67 mg/dL (0.60-1.30); GLOMERULAR FILTR. RATE CALC 23.0 mL/min (>60); GLUCOSE,RANDOM 217.0 mg/dL (70-110); SODIUM SERUM 139.0 mmol/L (136-145); UREA NITROGEN, BLOOD 68.0 mg/dL (7-18)
[2025-07-17 06:25] LABS: PHOSPHORUS 4.0 mg/dL (2.5-4.9)
[2025-07-17 06:51] LABS: GLUCOMETER DEV NAME(LOC) 5S.1E; GLUCOSE,POINT OF CARE 215 MG/DL (70-110)
[2025-07-17 07:15] LABS: RBC MORPHOLOGY COMMENT ABNORMAL RBC MORPH
[2025-07-17 07:28] LABS: LDH,BODY FLUID,REF 75.0 IU/L; TOTAL PROTEIN,BODY FLUID,REF 3.0 g/dL
[2025-07-17 12:05] LABS: GLUCOMETER DEV NAME(LOC) 5S.1E; GLUCOSE,POINT OF CARE 156 MG/DL (70-110)
[2025-07-17] MEDS ORDERED: LEVO750T68 PO ×2 (12:25→12:30)
[2025-07-17] MEDS ORDERED: INSU100V SQ (12:25)
[2025-07-17] MEDS ORDERED: ISOS30TA92 PO (12:25)
[2025-07-17] MEDS ORDERED: PRED-729 PO (12:25)
[2025-07-17] MEDS ORDERED: INSLAN SQ (12:25)
[2025-07-17] MEDS ORDERED: COLL30OI TP (12:25)
[2025-07-17] MEDS ORDERED: FLUT1BLS19 IH (12:33)
[2025-07-18] MEDS ORDERED: LEVOFLOXACIN 500 MG/D5% WATER 100 ML IV SCH (12:00)
== END 2025-07-17 17:15 | disposition home health service (06) | DRG 177 ==
LOC: EMS 16:13 → EDH 18:07 → 5S 21:53
PROVIDERS: ADMIT Internal Medicine; ATTEND Internal Medicine
PROC: 30233N1 Transfusion of Nonautologous Red Blood Cells into Peripheral Vein, Percutaneous Approach (ICD-10-PCS; 2025-07-13)
PROC: 0W993ZZ Drainage of Right Pleural Cavity, Percutaneous Approach (ICD-10-PCS; principal; 2025-07-15)
DX: J69.0 Pneumonitis due to inhalation of food and vomit (principal); I50.23 Acute on chronic systolic (congestive) heart failure; J96.01 Acute respiratory failure with hypoxia; I13.0 Hypertensive heart and chronic kidney disease with heart failure and stage 1 through stage 4 chronic kidney disease, or unspecified chronic kidney disease; N18.4 Chronic kidney disease, stage 4 (severe); J44.1 Chronic obstructive pulmonary disease with (acute) exacerbation; J91.8 Pleural effusion in other conditions classified elsewhere; I42.9 Cardiomyopathy, unspecified; J45.901 Unspecified asthma with (acute) exacerbation; N17.9 Acute kidney failure, unspecified; E03.9 Hypothyroidism, unspecified; D50.9 Iron deficiency anemia, unspecified; E11.22 Type 2 diabetes mellitus with diabetic chronic kidney disease; E11.621 Type 2 diabetes mellitus with foot ulcer; E78.00 Pure hypercholesterolemia, unspecified; E87.5 Hyperkalemia; J98.4 Other disorders of lung; L97.519 Non-pressure chronic ulcer of other part of right foot with unspecified severity; Z60.3 Acculturation difficulty; Z87.891 Personal history of nicotine dependence; Z79.899 Other long term (current) drug therapy; Z79.82 Long term (current) use of aspirin; Z79.4 Long term (current) use of insulin; Z79.02 Long term (current) use of antithrombotics/antiplatelets; F14.90 Cocaine use, unspecified, uncomplicated; E11.51 Type 2 diabetes mellitus with diabetic peripheral angiopathy without gangrene
CPT/HCPCS: 32555; 71045; 71250; 73718; 76770; 76942; 80048; 80307; 81001; 82042; 82271; 82465; 82945; 82962; 83615; 83735; 83880; 83986; 84100; 84132; 84145; 84157; 84439; 84443; 84481; 84484; 85025; 85610; 86850; 86900; 86901; 86923; 87015; 87040; 87070; 87075; 87101; 87205; 87206; 88108; 88305; 89051; 92610; 93005; 93306; 93925; 94640; 94760; 97116; 97162; 97165; 97530; 97535; 99285; J0610; J0696; J1644; J1815; J1938; J1956; J2470; J2543; J2919; J3490; J7030; J7040; J7060; P9016; 36415-L1; 36415-TC; J7512; J7613; Z7610